=== PATIENT | female | born 1985 | race Caucasian/White ===

== ENCOUNTER → 2017-10-19 | Outpatient (CLI) | payer OTHER | LOC: BRMIMAGING 12:04 | PROVIDERS: ATTEND Internal Medicine Rheumatology | DX: M79.642 Pain in left hand (principal); M79.641 Pain in right hand; M25.551 Pain in right hip; M25.552 Pain in left hip; M54.5 Low back pain; M53.3 Sacrococcygeal disorders, not elsewhere classified | CPT/HCPCS: 72100-PO; 72202-PO; 73120-PO; 73521-PO ==